=== PATIENT | female | born 1995 | race American Indian/Alaskan Native ===

== ENCOUNTER 2016-12-10 13:00 | Emergency (ER) | payer MEDICAID ==
[2016-12-10 14:16] VITALS: BP 147/91
--- NOTE | 2016-12-10 14:17 | Emergency Department Report ---
Chief Complaint: Abdominal Pain Stated Complaint: LWR ABD PAIN Time Seen by Provider: 12/10/16 14:10 - HPI History of Present Illness: lower abd pain for 2 y since [facility] ob[facility] in nov and all was fine hx endomet denies bleeding or dc tubal jumping and tearful in triage - Exam Vital Signs: Vital Signs 12/10/16 14:11 Temperature 97.4 F L Pulse Rate 97 H Respiratory 17 Rate Blood Pressure 147/91 O2 Sat by Pulse 100 Oximetry MSE screening note: Focused history and physical exam performed. Due to findings the following was ordered: ED Disposition for MSE Condition: Stable
[2016-12-10 14:43] LABS: Basophils % (Auto) 0.4 % (0.0-1.8); Eosinophils % (Auto) 0.4 % (0.0-4.3); Hematocrit 35.8 % (30.3-42.9); Hemoglobin 11.2 gm/dl (10.1-14.3); Mean Corpuscular HGB Conc 31 % (30-34); Mean Corpuscular Volume 70 fl (79-97); Platelet Count 331 K/mm3 (140-440); Red Blood Count 5.09 M/mm3 (3.65-5.03); White Blood Count 8.8 K/mm3 (4.5-11.0)
[2016-12-10 14:45] LABS: Mean Corpuscular Hemoglobin 22 pg (28-32)
[2016-12-10 15:14] LABS: Alanine Aminotransferase 18 units/L (7-56); Albumin/Globulin Ratio 1.4 %; Alkaline Phosphatase 147 units/L (35-129); Anion Gap 18 mmol/L; Blood Urea Nitrogen 8 mg/dL (7-17); Calcium 9.1 mg/dL (8.4-10.2); Carbon Dioxide 25 mmol/L (22-30); Chloride 103.8 mmol/L (98-107); Glucose 121 mg/dL (65-100); Potassium 4.1 mmol/L (3.6-5.0); Sodium 143 mmol/L (137-145); Total Protein 6.9 g/dL (6.3-8.2)
[2016-12-10 15:17] LABS: Bilirubin,Direct < 0.2 mg/dL (0-0.2)
[2016-12-10 15:40] LABS: Bilirubin,Urine NEG (Negative); Blood,Urine NEG (Negative); Ketones,Urine NEG (Negative); Leukocyte Esterase,Urine NEG (Negative); Mucus,Urine FEW /HPF; Nitrite,Urine NEG (Negative); Protein,Urine <15 mg/dL mg/dL (Negative); Urobilinogen,Urine < 2.0 mg/dL (<2.0)
--- NOTE | 2016-12-14 00:46 | ED Elopement Review ---
ED Pt Elopement review - Results review Lab results: Laboratory Tests 12/10/16 12/10/16 12/10/16 14:26 14:26 15:03 WBC 8.8 RBC 5.09 H Hgb 11.2 Hct 35.8 MCV 70 L MCH 22 L MCHC 31 RDW 18.0 H Plt Count 331 Lymph % (Auto) 13.6 [place] % (Auto) 3.8 Eos % (Auto) 0.4 Baso % (Auto) 0.4 Lymph # 1.2 [place] # 0.3 Eos # 0.0 Baso # 0.0 Seg Neutrophils % 81.8 H Seg Neutrophils # 7.2 Sodium 143 Potassium 4.1 Chloride 103.8 Carbon Dioxide 25 Anion Gap 18 BUN 8 Creatinine 0.5 L Estimated GFR > 60 BUN/Creatinine Ratio 16.00 Glucose 121 H Calcium 9.1 Total Bilirubin 0.30 Direct Bilirubin < 0.2 AST 17 ALT 18 Alkaline Phosphatase 147 H Total Protein 6.9 Albumin 4.0 Albumin/Globulin Ratio 1.4 Urine Color Yellow Urine Turbidity Clear Urine pH 7.0 Ur Specific Thompson 1.021 Urine Protein <15 mg/dl Urine Glucose (UA) Neg Urine Ketones Neg Urine Blood Neg Urine Nitrite Neg Urine Bilirubin Neg Urine Urobilinogen < 2.0 Ur Leukocyte Esterase Neg Urine WBC (Auto) 1.0 Urine RBC (Auto) 2.0 U Epithel Cells (Auto) 4.0 Urine Mucus Few Urine HCG, Qual Negative - Call Back decision Pt Call Back Decision: Pt to F/U with PMD
== END 2016-12-10 19:45 | disposition left against medical advice (07) ==
LOC: ED 13:00
DX: R10.30 Lower abdominal pain, unspecified (principal); Z53.21 Procedure and treatment not carried out due to patient leaving prior to being seen by health care provider
CPT/HCPCS: 36415; 80048; 80074; 81001; 81025; 85025

== ENCOUNTER 2017-02-12 13:02 | Emergency (ER) | payer MEDICAID ==
--- NOTE | 2017-02-12 13:16 | Emergency Department Report ---
Chief Complaint: Abdominal Pain Stated Complaint: LOW ABDOMINAL PAIN Time Seen by Provider: 02/12/17 13:08 - HPI History of Present Illness: pt c/o r flank pain after using bathroom. - ROS Review of Systems: - dysuria - hematuria - Exam Physical Exam: Pt is alert, non toxic obese abd, no guarding MSE screening note: Focused history and physical exam performed. Due to findings the following was ordered: labs ED Disposition for MSE Condition: Stable
[2017-02-12 13:41] LABS: Basophils % (Auto) 0.5 % (0.0-1.8); Eosinophils % (Auto) 1.7 % (0.0-4.3); Hemoglobin 10.7 gm/dl (10.1-14.3); Mean Corpuscular HGB Conc 31 % (30-34); Mean Corpuscular Hemoglobin 22 pg (28-32); Mean Corpuscular Volume 71 fl (79-97); Platelet Count 357 K/mm3 (140-440); Red Blood Count 4.96 M/mm3 (3.65-5.03); White Blood Count 9.7 K/mm3 (4.5-11.0)
--- NOTE | 2017-02-12 13:57 | Emergency Department Report ---
ED Abdominal Pain HPI - General Chief Complaint: Abdominal Pain Stated Complaint: LOW ABDOMINAL PAIN Time Seen by Provider: 02/12/17 13:08 Source: patient, EMS Mode of arrival: Wheelchair Limitations: No Limitations - History of Present Illness Initial Comments: Patient reports abdominal pain to the right lower abdomen that started today. Patient that pain comes and goes and isn't peds. Patient said the pain is radiating around her right side also. Denies any fever or chills sprain is 8 out of 10 and achy. Denies any medical problems. She'll surgical history C- section 2. Resume nausea or vomiting or urinary burning frequency or urgency. Last menstrual period was 02/01/2017. Denies uVaginal bleeding or discharge. MD Complaint: abdominal pain -: This afternoon Location: RLQ Radiation: none Severity: severe Severity scale (0 -10): 8 Quality: cramping, aching Consistency: intermittent Improves With: nothing Worsens With: nothing Context: other (unknown) Associated Symptoms: denies: nausea, vomiting, diarrhea, fever, chills, constipation, dysuria, hematemesis, hematochezia, melena, hematuria, anorexia, syncope Treatments Prior to Arrival: other (none) - Related Data LMP Date: 02/01/17 Previous Rx's Medication Instructions Recorded Last Taken Type Naproxen [Naprosyn TAB] 500 mg PO BID PRN #12 tablet 02/12/17 Unknown Rx Allergies Allergy/AdvReac Type Severity Reaction Status Date / Time Sulfa (Sulfonamide Allergy Rash Verified 12/10/16 14:11 Antibiotics) latex AdvReac Intermediate Rash Verified 10/22/14 17:06 ED Review of Systems ROS: Stated complaint: LOW ABDOMINAL PAIN Other details as noted in HPI Comment: All other systems reviewed and negative Constitutional: denies: chills, fever Eyes: denies: eye pain Respiratory: no symptoms reported Cardiovascular: denies: chest pain, palpitations, edema, syncope Gastrointestinal: abdominal pain. denies: nausea, vomiting, diarrhea, constipation, hematemesis, melena, hematochezia Genitourinary: denies: urgency, dysuria, frequency, hematuria, discharge, abnormal menses, dyspareunia Skin: denies: rash Neurological: denies: headache, weakness, numbness, paresthesias, confusion, abnormal gait, vertigo ED Past Medical Hx - Past Medical History Previous Medical History?: No Hx Hypertension: No Hx Diabetes: No Hx Deep Vein Thrombosis: No Hx Renal Disease: No Hx Sickle Cell Disease: No Hx Seizures: No Hx Asthma: No Hx HIV: No - Surgical History Past Surgical History?: Yes Additional Surgical History: x2 - Family History Family history: no significant - Social History Smoking Status: Never Smoker Substance Use Type: None - Medications Home Medications: Home Medications Medication Instructions Recorded Confirmed Last Taken Type Naproxen [Naprosyn TAB] 500 mg PO BID PRN #12 tablet 02/12/17 Unknown Rx ED Physical Exam - General Limitations: No Limitations General appearance: alert, in no apparent distress - Head Head exam: Present: atraumatic, normocephalic, normal inspection - Eye Eye exam: Present: normal appearance, PERRL, EOMI. Absent: periorbital swelling , periorbital tenderness Pupils: Present: normal accommodation - ENT ENT exam: Present: normal exam, normal orophraynx, mucous membranes moist, TM's normal bilaterally, normal external ear exam - Respiratory Respiratory exam: Present: normal lung sounds bilaterally. Absent: respiratory distress, chest wall tenderness - Cardiovascular Cardiovascular Exam: Present: regular rate, normal rhythm, normal heart sounds - GI/Abdominal GI/Abdominal exam: Present: soft, tenderness (right lower quadrant), normal bowel sounds. Absent: distended, guarding, rebound, rigid, organomegaly, mass, bruit, pulsatile mass - Extremities Exam Extremities exam: Present: normal inspection, full ROM, normal capillary refill. Absent: tenderness, pedal edema, joint swelling, calf tenderness - Back Exam Back exam: Present: normal inspection, full ROM. Absent: tenderness, CVA tenderness (R), CVA tenderness (L), muscle spasm, paraspinal tenderness, vertebral tenderness, rash noted - Neurological Exam Neurological exam: Present: alert, oriented X3, normal gait, reflexes normal. Absent: motor sensory deficit - Psychiatric Psychiatric exam: Present: normal affect, normal mood - Skin Skin exam: Present: warm, dry, intact, normal color. Absent: rash ED Course Vital Signs 02/12/17 02/12/17 02/12/17 13:08 14:17 14:25 Temperature 98.2 F Pulse Rate 100 H Respiratory 18 16 16 Rate Blood Pressure 125/93 O2 Sat by Pulse 100 Oximetry - Reevaluation(s) Reevaluation #1: 02/12/17 16:44 Patient given Toradol 30 mg IV and Zofran 8 mg ODT and she says she feels better. 02/12/17 16:44 No change in abdominal exam. awaiting CT scan 02/12/17 16:44 Reevaluation #2: 02/12/17 19:15 Patient stable throughout ED stay no change in abdominal assessment. ED Medical Decision Making - Lab Data Result diagrams: 02/12/17 13:25 02/12/17 13:25 Lab Results 02/12/17 02/12/17 02/12/17 Range/Units 13:25 13:25 13:25 WBC 9.7 (4.5-11.0) K/mm3 RBC 4.96 (3.65-5.03) M/mm3 Hgb 10.7 (10.1-14.3) gm/dl Hct 35.0 (30.3-42.9) % MCV 71 L (79-97) fl MCH 22 L (28-32) pg MCHC 31 (30-34) % RDW 18.0 H (13.2-15.2) % Plt Count 357 (140-440) K/mm3 Lymph % (Auto) 25.8 (13.4-35.0) % Walker % (Auto) 5.1 (0.0-7.3) % Eos % (Auto) 1.7 (0.0-4.3) % Baso % (Auto) 0.5 (0.0-1.8) % Lymph # 2.5 (1.2-5.4) K/mm3 Walker # 0.5 (0.0-0.8) K/mm3 Eos # 0.2 (0.0-0.4) K/mm3 Baso # 0.0 (0.0-0.1) K/mm3 Seg Neutrophils % 66.9 (40.0-70.0) % Seg Neutrophils # 6.5 (1.8-7.7) K/mm3 Carbon Dioxide 26 (22-30) mmol/L BUN 8 (7-17) mg/dL Creatinine 0.6 L (0.7-1.2) mg/dL Estimated GFR > 60 ml/min BUN/Creatinine Ratio 13.33 % Glucose 97 (65-100) mg/dL Calcium 9.0 (8.4-10.2) mg/dL Total Bilirubin 0.20 (0.1-1.2) mg/dL AST 15 (5-40) units/L ALT 15 (7-56) units/L Alkaline Phosphatase 142 H (35-129) units/L Total Protein 7.3 (6.3-8.2) g/dL Albumin 4.1 (3.9-5) g/dL Albumin/Globulin Ratio 1.3 % HCG, Qual Negative (Negative) Urine Color (Yellow) Urine Turbidity (Clear) Urine pH (5.0-7.0) Ur Specific [place] (1.003-1.030) Urine Protein (Negative) mg/dL Urine Glucose (UA) (Negative) mg/dL Urine Ketones (Negative) mg/dL Urine Blood (Negative) Urine Nitrite (Negative) Urine Bilirubin (Negative) Urine Urobilinogen (<2.0) mg/dL Ur Leukocyte Esterase (Negative) Urine WBC (Auto) (0.0-6.0) /HPF Urine RBC (Auto) (0.0-6.0) /HPF U Epithel Cells (Auto) (0-13.0) /HPF 07/18/17 Range/Units 14:00 WBC (4.5-11.0) K/mm3 RBC (3.65-5.03) M/mm3 Hgb (10.1-14.3) gm/dl Hct (30.3-42.9) % MCV (79-97) fl MCH (28-32) pg MCHC (30-34) % RDW (13.2-15.2) % Plt Count (140-440) K/mm3 Lymph % (Auto) (13.4-35.0) % Walker % (Auto) (0.0-7.3) % Eos % (Auto) (0.0-4.3) % Baso % (Auto) (0.0-1.8) % Lymph # (1.2-5.4) K/mm3 Walker # (0.0-0.8) K/mm3 Eos # (0.0-0.4) K/mm3 Baso # (0.0-0.1) K/mm3 Seg Neutrophils % (40.0-70.0) % Seg Neutrophils # (1.8-7.7) K/mm3 Carbon Dioxide (22-30) mmol/L BUN (7-17) mg/dL Creatinine (0.7-1.2) mg/dL Estimated GFR ml/min BUN/Creatinine Ratio % Glucose (65-100) mg/dL Calcium (8.4-10.2) mg/dL Total Bilirubin (0.1-1.2) mg/dL AST (5-40) units/L ALT (7-56) units/L Alkaline Phosphatase (35-129) units/L Total Protein (6.3-8.2) g/dL Albumin (3.9-5) g/dL Albumin/Globulin Ratio % HCG, Qual (Negative) Urine Color Straw (Yellow) Urine Turbidity Clear (Clear) Urine pH 6.0 (5.0-7.0) Ur Specific [place] 1.011 (1.003-1.030) Urine Protein <15 mg/dl (Negative) mg/dL Urine Glucose (UA) Neg (Negative) mg/dL Urine Ketones Neg (Negative) mg/dL Urine Blood Neg (Negative) Urine Nitrite Neg (Negative) Urine Bilirubin Neg (Negative) Urine Urobilinogen < 2.0 (<2.0) mg/dL Ur Leukocyte Esterase Neg (Negative) Urine WBC (Auto) 1.0 (0.0-6.0) /HPF Urine RBC (Auto) 3.0 (0.0-6.0) /HPF U Epithel Cells (Auto) 2.0 (0-13.0) /HPF - Radiology Data Radiology results: report reviewed CT of the abdomen and pelvis with IV contrast revealed no acute findings in abdomen or pelvis. The liver, gallbladder, pancreas, spleen and adrenal glands appear normal. The kidneys appear normal. The uterus and ovaries appear grossly normal, bilateral tubal ligation clips are noted. The stomach appears within normal limits. There are no abnormally dilated loops of bowel or acute inflammatory changes. There is a tubular structure overlying soft muscle in the right lower quadrant that probably represent a normal appendix. There are no signs of appendicitis. The abnormal aorta has a normal diameter. The bones and subcutaneous soft tissue are unremarkable for age. - Medical Decision Making ED course: She here complaining of abdominal pain that started today. To her right lower quadrant. given Toradol 30 mg IV and Zofran 8 mg ODT which relieved her pain. Discussed with patient that her lab work to include a urinalysis and test were negative for any bacterial infection and her CT scan reveals normal abdomen and pelvis. Patient voiced understanding the discharge instruction and discharged home with prescription for naproxen and to follow-up with her SR. LOGISTICS ANALYST and gastroenterology in 2-3 days. Critical care attestation.: If time is entered above; I have spent that time in minutes in the direct care of this critically ill patient, excluding procedure time. ED Disposition Clinical Impression: Abdominal pain Qualifiers: Abdominal location: right lower quadrant Qualified Code(s): R10.31 - Right lower quadrant pain Disposition: - TO HOME OR SELFCARE Is pt being admited?: No Does the pt Need Aspirin: No Condition: Stable Instructions: Abdominal Pain (ED) Additional Instructions: Please increase your fluid intake Follow up with SR. LOGISTICS ANALYST and money room supervisor in the next 2-3 days 8 naproxen as this will help pain. Prescriptions: Naproxen [Naprosyn TAB] 500 mg PO BID PRN #12 tablet PRN Reason: Pain Referrals: [facility] [Provider Group] - 2-3 Days PRIMARY [facility]ARE, [Primary Care Provider] - 2-3 Days [facility] [Provider Group] - 3-5 Days Forms: Work/School Release Form(ED)
[2017-02-12 13:59] LABS: Alanine Aminotransferase 15 units/L (7-56); Albumin 4.1 g/dL (3.9-5); Albumin/Globulin Ratio 1.3 %; Alkaline Phosphatase 142 units/L (35-129); Anion Gap 18 mmol/L; BUN/Creatinine Ratio 13.33; Blood Urea Nitrogen 8 mg/dL (7-17); Carbon Dioxide 26 mmol/L (22-30); Chloride 100.7 mmol/L (98-107); Glucose 97 mg/dL (65-100); Potassium 3.8 mmol/L (3.6-5.0); Sodium 141 mmol/L (137-145); Total Protein 7.3 g/dL (6.3-8.2)
[2017-02-12] MEDS ORDERED: TORADOL IM ONE (13:59)
[2017-02-12] MEDS ORDERED: ZOFRAN ODT PO ONE (13:59)
[2017-02-12] MEDS ORDERED: TORADOL IV ONE (14:10)
[2017-02-12 14:38] LABS: Bilirubin,Urine NEG (Negative); Blood,Urine NEG (Negative); Ketones,Urine NEG (Negative); Leukocyte Esterase,Urine NEG (Negative); Nitrite,Urine NEG (Negative); Protein,Urine <15 mg/dL mg/dL (Negative); Urobilinogen,Urine < 2.0 mg/dL (<2.0)
[2017-02-12] MEDS ORDERED: NACL ONE (17:04)
--- NOTE | 2017-02-12 18:32 | Cat Scan Report ---
FINAL REPORT EXAM: CT ABDOMEN PELVIS W CON HISTORY: RLQ abdominal pain TECHNIQUE: Dynamic helical CT scan through the abdomen and pelvis during and again after intravenous injection of iodinated contrast. Images are reconstructed in the sagittal and coronal planes. Oral contrast was not given. PRIORS: None. FINDINGS: The lung bases are clear. The liver, gallbladder, pancreas, spleen and adrenal glands appear normal. The kidneys appear normal. The uterus and ovaries appear grossly normal. Bilateral tubal ligation clips are noted. The stomach appears grossly within normal limits. There are no abnormally dilated loops of bowel or acute inflammatory changes. There is a tubular structure overlying psoas muscle in the right lower quadrant that probably represents a normal appendix. There are no signs of appendicitis. The abdominal aorta has a normal diameter. The bones and subcutaneous soft tissues are unremarkable for age. IMPRESSION: No acute findings in the abdomen/pelvis
[2017-02-12 19:44] VITALS: BP 116/88
== END 2017-02-12 19:44 | disposition home or self-care (01) ==
LOC: ED 13:02
DX: R10.31 Right lower quadrant pain (principal); Z88.2 Allergy status to sulfonamides; Z91.040 Latex allergy status
CPT/HCPCS: 36415; 74177; 80053; 81001; 84703; 85025; 96374; 99284; J1885; Q9967; Q0162